=== PATIENT | male | born 1950 | race Caucasian/White ===

== ENCOUNTER 2021-12-21 06:14 | Observation (INO) ==
[2021-12-21] MEDS ORDERED: CeFAZolin Syr 3,000MG/30 ML 3,000 MG/30 ML SYRINGE IVPB ONE (06:26)
[2021-12-21] MEDS ORDERED: Famotidine 20 MG/2 ML VIAL IVP ONE (06:30)
[2021-12-21] MEDS ORDERED: Acetaminophen IV 1,000 MG/100 ML BAG IVPB ONE (06:30)
[2021-12-21] MEDS ORDERED: Ringers Solution, Lactated 1,000 ML IVC SCH ×2 (06:30→11:46)
[2021-12-21] MEDS ORDERED: *HR* Propofol 200 MG/20 ML VIAL IVP ONE (06:32)
[2021-12-21] MEDS ORDERED: *HR* FentaNYL (PF) 100 MCG/2 ML VIAL ONE (06:32)
[2021-12-21] MEDS ORDERED: *HR* Midazolam HCl 2 MG/2 ML VIAL ONE (06:32)
[2021-12-21] MEDS ORDERED: Vancomycin 1,000 MG VIAL ONE (07:02)
[2021-12-21] MEDS ORDERED: Povidone-Iodine 45 ML, Sodium Chloride IRRigation 1,000 ML IR ONE (07:30)
[2021-12-21] MEDS ORDERED: TOTAL JOINT MIXTURE (100ML) INTRAART ONE (07:30)
[2021-12-21] MEDS ORDERED: EPHEDrine 50 MG/ML VIAL ONE (07:51)
[2021-12-21] MEDS ORDERED: Tranexamic Acid 1,000 MG/10 ML VIAL ONE (08:05)
[2021-12-21] MEDS ORDERED: Ondansetron 4 MG/2 ML VIAL ONE (08:15)
[2021-12-21] MEDS ORDERED: *HR* OxyCODONE Immed Rel 5 MG TABLET PO PRN ×2 (10:27→11:46)
[2021-12-21] MEDS ORDERED: Ondansetron 4 MG/2 ML VIAL IVP PRN (11:46)
[2021-12-21] MEDS ORDERED: Naloxone 0.4 MG/ML INJ IVP PRN (11:46)
[2021-12-21] MEDS ORDERED: *HR* Promethazine 25 MG/ML VIAL IM PRN (11:46)
[2021-12-21] MEDS ORDERED: MOM Conc 10 ML UD.LIQ PO PRN (11:46)
[2021-12-21] MEDS ORDERED: Sennosides 8.6 MG TABLET PO PRN (11:46)
[2021-12-21] MEDS: Ketorolac 30 MG/ML VIAL IVP SCH ×3 (14:05→23:30)
[2021-12-21] MEDS: Ascorbic Acid 500 MG TABLET PO SCH (16:12)
[2021-12-21] MEDS: ceFAZolin 3,000 MG in 0.9 % Sodium Chloride 100 ML IVPB SCH ×2 (16:12→23:33)
[2021-12-22] MEDS: Ketorolac 30 MG/ML VIAL IVP SCH ×3 (06:36→16:35)
[2021-12-22 06:41] LABS: Basophils # 0.1 K/mcL (0.0-0.2); Basophils % 0.3 %; Eosinophils % 0.1 %; Hematocrit 36.3 % (37.5-50.1); Hemoglobin 12.2 g/dL (12.9-16.9); Immature Granulocytes % 0.4 % (0-4); Lymphocytes # 3.2 K/mcL (0.6-4.6); Mean Corpuscular HGB Conc 33.6 g/dL (31.6-35.5); Mean Corpuscular Hemoglobin 32.4 pg (28.0-33.3); Mean Corpuscular Volume 96.5 fL (83.0-100.0); Mean Platelet Volume 10.4 fL (9.4-12.4); Monocytes # 2.5 K/mcL (0.0-1.3); Monocytes % 14.1 %; Neutrophils # 11.7 K/mcL (1.6-8.9); Platelet Count 161 K/mcL (140-400); Red Blood Count 3.76 M/mcL (4.19-5.50); Red Cell Distribution Width 12.7 % (11.5-14.5); Segmented Neutrophils % 67.1 %; White Blood Count 17.5 K/mcL (4.3-11.1)
[2021-12-22 07:06] LABS: BUN/Creatinine Ratio 14 (6-26); Blood Urea Nitrogen 15 mg/dL (8-23); Calcium 8.2 mg/dL (8.6-10.3); Carbon Dioxide 25 mEq/L (23-29); Chloride 102 mEq/L (98-107); Glucose 175 mg/dL (70-105); Osmolality,Calculated 287 (280-300); Potassium 3.8 mEq/L (3.5-5.1); Sodium 136 mEq/L (136-145); eGFR For African Americans > 60 (> 60); eGFR For Non-African Americans > 60 (> 60)
[2021-12-22] MEDS: Multivit/Ca/Min/Fe/FA 1 TAB TABLET PO SCH (10:04)
[2021-12-22] MEDS: Losartan/HCTZ 50-12.5 TABLET PO SCH (10:04)
[2021-12-22] MEDS: amLODIPine 5 MG TABLET PO SCH (10:04)
[2021-12-22] MEDS: ceFAZolin 3,000 MG in 0.9 % Sodium Chloride 100 ML IVPB SCH ×2 (10:05→16:38)
[2021-12-22] MEDS: Ascorbic Acid 500 MG TABLET PO SCH ×2 (10:11→16:35)
[2021-12-22] MEDS: Fluticasone Propionate Nasal 50 MCG/SPRAY BOTTLE NS SCH (15:36)
[2021-12-22] MEDS: *HR* Rivaroxaban 10 MG TABLET PO SCH (16:34)
[2021-12-22] MEDS: CeFAZolin 2,000 MG/120 ML BAG IVPB SCH (18:50)
[2021-12-23] MEDS: Ketorolac 30 MG/ML VIAL IVP SCH ×5 (00:22→23:10)
[2021-12-23] MEDS: CeFAZolin 2,000 MG/120 ML BAG IVPB SCH ×3 (01:32→18:04)
[2021-12-23 04:50] LABS: Basophils # 0.1 K/mcL (0.0-0.2); Basophils % 0.4 %; Eosinophils % 0.2 %; Hematocrit 32.6 % (37.5-50.1); Hemoglobin 11.1 g/dL (12.9-16.9); Immature Granulocytes % 0.4 % (0-4); Lymphocytes # 3.1 K/mcL (0.6-4.6); Lymphocytes % 19.2 %; Mean Corpuscular Hemoglobin 32.5 pg (28.0-33.3); Mean Corpuscular Volume 95.3 fL (83.0-100.0); Mean Platelet Volume 10.7 fL (9.4-12.4); Monocytes # 2.1 K/mcL (0.0-1.3); Monocytes % 12.9 %; Neutrophils # 10.8 K/mcL (1.6-8.9); Platelet Count 146 K/mcL (140-400); Red Blood Count 3.42 M/mcL (4.19-5.50); Red Cell Distribution Width 12.7 % (11.5-14.5); Segmented Neutrophils % 66.9 %; White Blood Count 16.1 K/mcL (4.3-11.1)
[2021-12-23 05:00] LABS: BUN/Creatinine Ratio 16 (6-26); Blood Urea Nitrogen 15 mg/dL (8-23); Calcium 8.1 mg/dL (8.6-10.3); Carbon Dioxide 22 mEq/L (23-29); Chloride 104 mEq/L (98-107); Glucose 148 mg/dL (70-105); Osmolality,Calculated 284 (280-300); Potassium 3.3 mEq/L (3.5-5.1); Sodium 135 mEq/L (136-145); eGFR For African Americans > 60 (> 60); eGFR For Non-African Americans > 60 (> 60)
[2021-12-23] MEDS: Losartan/HCTZ 50-12.5 TABLET PO SCH (08:25)
[2021-12-23] MEDS: amLODIPine 5 MG TABLET PO SCH (08:25)
[2021-12-23] MEDS: Ascorbic Acid 500 MG TABLET PO SCH ×2 (08:25→18:03)
[2021-12-23] MEDS: Cholecalciferol (D-3) 1,000 UNIT (25MCG) TABLET PO SCH (08:25)
[2021-12-23] MEDS: Multivit/Ca/Min/Fe/FA 1 TAB TABLET PO SCH (08:26)
[2021-12-23] MEDS: Fluticasone Propionate Nasal 50 MCG/SPRAY BOTTLE NS SCH (08:30)
[2021-12-23] MEDS: *HR* Rivaroxaban 10 MG TABLET PO SCH (18:04)
[2021-12-24] MEDS: CeFAZolin 2,000 MG/120 ML BAG IVPB SCH ×3 (02:55→17:42)
[2021-12-24] MEDS: Ketorolac 30 MG/ML VIAL IVP SCH ×3 (05:11→17:41)
[2021-12-24] MEDS: Ascorbic Acid 500 MG TABLET PO SCH ×2 (09:04→16:02)
[2021-12-24] MEDS: Cholecalciferol (D-3) 1,000 UNIT (25MCG) TABLET PO SCH (09:05)
[2021-12-24] MEDS: amLODIPine 5 MG TABLET PO SCH (09:05)
[2021-12-24] MEDS: Multivit/Ca/Min/Fe/FA 1 TAB TABLET PO SCH (09:05)
[2021-12-24] MEDS: Losartan/HCTZ 50-12.5 TABLET PO SCH (09:05)
[2021-12-24] MEDS: Fluticasone Propionate Nasal 50 MCG/SPRAY BOTTLE NS SCH (09:07)
[2021-12-24] MEDS: *HR* Rivaroxaban 10 MG TABLET PO SCH (16:02)
[2021-12-25] MEDS: Ketorolac 30 MG/ML VIAL IVP SCH ×5 (00:10→23:07)
[2021-12-25] MEDS: CeFAZolin 2,000 MG/120 ML BAG IVPB SCH ×3 (04:17→17:58)
[2021-12-25] MEDS: Multivit/Ca/Min/Fe/FA 1 TAB TABLET PO SCH (07:45)
[2021-12-25] MEDS: Ascorbic Acid 500 MG TABLET PO SCH ×2 (07:45→15:57)
[2021-12-25] MEDS: Losartan/HCTZ 50-12.5 TABLET PO SCH (07:45)
[2021-12-25] MEDS: Cholecalciferol (D-3) 1,000 UNIT (25MCG) TABLET PO SCH (07:45)
[2021-12-25] MEDS: amLODIPine 5 MG TABLET PO SCH (07:45)
[2021-12-25] MEDS: Fluticasone Propionate Nasal 50 MCG/SPRAY BOTTLE NS SCH (08:04)
[2021-12-25] MEDS: *HR* Rivaroxaban 10 MG TABLET PO SCH (15:57)
[2021-12-25] MEDS: Simethicone 80 MG TAB.CHEW PO PRN (18:02)
[2021-12-26] MEDS: CeFAZolin 2,000 MG/120 ML BAG IVPB SCH ×3 (02:43→17:43)
[2021-12-26] MEDS: Ketorolac 30 MG/ML VIAL IVP SCH ×2 (05:08→12:26)
[2021-12-26] MEDS: Losartan/HCTZ 50-12.5 TABLET PO SCH (07:52)
[2021-12-26] MEDS: amLODIPine 5 MG TABLET PO SCH (07:52)
[2021-12-26] MEDS: Cholecalciferol (D-3) 1,000 UNIT (25MCG) TABLET PO SCH (07:52)
[2021-12-26] MEDS: Simethicone 80 MG TAB.CHEW PO PRN ×2 (07:52→17:38)
[2021-12-26] MEDS: Multivit/Ca/Min/Fe/FA 1 TAB TABLET PO SCH (07:52)
[2021-12-26] MEDS: Ascorbic Acid 500 MG TABLET PO SCH ×2 (07:52→17:38)
[2021-12-26] MEDS: Fluticasone Propionate Nasal 50 MCG/SPRAY BOTTLE NS SCH (10:02)
[2021-12-26 16:00] LABS: Basophils # 0.1 K/mcL (0.0-0.2); Basophils % 0.5 %; Eosinophils # 0.4 K/mcL (0.0-0.6); Eosinophils % 2.9 %; Hematocrit 34.4 % (37.5-50.1); Hemoglobin 11.8 g/dL (12.9-16.9); Immature Granulocytes % 0.4 % (0-4); Lymphocytes # 3.3 K/mcL (0.6-4.6); Mean Corpuscular HGB Conc 34.3 g/dL (31.6-35.5); Mean Corpuscular Hemoglobin 32.7 pg (28.0-33.3); Mean Corpuscular Volume 95.3 fL (83.0-100.0); Mean Platelet Volume 9.9 fL (9.4-12.4); Monocytes # 1.5 K/mcL (0.0-1.3); Monocytes % 10.1 %; Neutrophils # 9.1 K/mcL (1.6-8.9); Platelet Count 229 K/mcL (140-400); Red Blood Count 3.61 M/mcL (4.19-5.50); Red Cell Distribution Width 12.5 % (11.5-14.5); Segmented Neutrophils % 63.1 %; White Blood Count 14.4 K/mcL (4.3-11.1)
[2021-12-26 16:08] LABS: Alanine Aminotransferase 27 Units/L (7-52); Albumin 3.5 g/dL (3.5-5.7); Albumin/Globulin Ratio 1.1 (1.1-2.2); Alkaline Phosphatase 62 Units/L (34-104); Aspartate Amino Transferase 52 Units/L (13-39); BUN/Creatinine Ratio 23 (6-26); Bilirubin,Total 0.7 mg/dL (0.3-1.0); Blood Urea Nitrogen 18 mg/dL (8-23); Calcium 8.5 mg/dL (8.6-10.3); Carbon Dioxide 28 mEq/L (23-29); Chloride 101 mEq/L (98-107); Globulin 3.1 g/dL (2.4-3.5); Glucose 178 mg/dL (70-105); Osmolality,Calculated 290 (280-300); Potassium 3.4 mEq/L (3.5-5.1); Sodium 137 mEq/L (136-145); Total Protein 6.6 g/dL (6.4-8.9); eGFR For African Americans > 60 (> 60); eGFR For Non-African Americans > 60 (> 60)
[2021-12-26] MEDS: *HR* Rivaroxaban 10 MG TABLET PO SCH (17:38)
[2021-12-27] MEDS: Simethicone 80 MG TAB.CHEW PO PRN (00:56)
[2021-12-27] MEDS: CeFAZolin 2,000 MG/120 ML BAG IVPB SCH ×3 (01:00→19:11)
[2021-12-27] MEDS: amLODIPine 5 MG TABLET PO SCH (08:19)
[2021-12-27] MEDS: Ascorbic Acid 500 MG TABLET PO SCH ×2 (08:19→17:32)
[2021-12-27] MEDS: Losartan/HCTZ 50-12.5 TABLET PO SCH (08:19)
[2021-12-27] MEDS: Cholecalciferol (D-3) 1,000 UNIT (25MCG) TABLET PO SCH (08:20)
[2021-12-27] MEDS: Multivit/Ca/Min/Fe/FA 1 TAB TABLET PO SCH (08:21)
[2021-12-27 09:17] LABS: Hematocrit 32.5 % (37.5-50.1); Hemoglobin 11.4 g/dL (12.9-16.9); Mean Corpuscular HGB Conc 35.1 g/dL (31.6-35.5); Mean Corpuscular Hemoglobin 33.1 pg (28.0-33.3); Mean Corpuscular Volume 94.5 fL (83.0-100.0); Mean Platelet Volume 9.5 fL (9.4-12.4); Platelet Count 247 K/mcL (140-400); Red Blood Count 3.44 M/mcL (4.19-5.50); Red Cell Distribution Width 12.4 % (11.5-14.5); White Blood Count 15.1 K/mcL (4.3-11.1)
[2021-12-27 09:35] LABS: BUN/Creatinine Ratio 22 (6-26); Blood Urea Nitrogen 17 mg/dL (8-23); Calcium 8.3 mg/dL (8.6-10.3); Carbon Dioxide 26 mEq/L (23-29); Chloride 100 mEq/L (98-107); Glucose 165 mg/dL (70-105); Osmolality,Calculated 281 (280-300); Potassium 3.6 mEq/L (3.5-5.1); Sodium 133 mEq/L (136-145); eGFR For African Americans > 60 (> 60); eGFR For Non-African Americans > 60 (> 60)
[2021-12-27 11:04] VITALS: BP 132/79
[2021-12-27] MEDS: Fluticasone Propionate Nasal 50 MCG/SPRAY BOTTLE NS SCH (11:08)
[2021-12-27 12:56] LABS: Influenza A PCR Negative (Negative); Influenza B PCR Negative (Negative); Resp. Syncytial Virus PCR Negative (Negative)
[2021-12-27 12:58] LABS: SARS-CoV-2 by PCR (In House) Negative (Negative)
[2021-12-27 14:40] VITALS: PULSE 78; TEMP 97.4; O2SAT 97
[2021-12-27] MEDS: *HR* Rivaroxaban 10 MG TABLET PO SCH (17:33)
[2021-12-28] MEDS ORDERED: amLODIPine 5 MG TABLET PO SCH (09:00)
== END 2021-12-27 20:23 ==
LOC: SDCAOSI 06:14 → 4WAOSI 06:14
PROVIDERS: ADMIT Orthopaedic Surgery; ATTEND Orthopaedic Surgery